=== PATIENT | male | born 1955 | race Caucasian/White ===

== ENCOUNTER 2016-09-07 20:13 | Emergency (ER) | payer OTHER ==
[~2016-09-07] VITALS: Ht 180.3 cm; Wt 88.6 kg
[2016-09-07 20:32] VITALS: BP 126/95; PULSE 101; RESP 31; O2SAT 97
--- NOTE | 2016-09-07 20:59 | DRSVH ---
PROCEDURE: X-RAY CHEST, TWO VIEWS ([id number]) INDICATIONS: fall off log, trapped between 2 logs TECHNIQUE: 2 views of the chest were acquired. COMPARISON: None. FINDINGS: Surgical changes and devices: None. Lungs and pleura: No pleural effusions or pneumothorax. Lungs are clear. Mediastinum: Mediastinal contours are normal. Heart size is normal. Bones and chest wall: Moderately displaced left posterior lateral eighth rib fracture. Soft tissues a ppear unremarkable. IMPRESSION: 1. Left eighth rib fracture. Dictated by: Shawna Kang M.D. on 09/07/2016 at 20:57 Approved by: Shawna Kang M.D. on 09/07/2016 at 20:57
--- NOTE | 2016-09-07 21:43 | ED.REPORT ---
HPI-Trauma Minor / Fall Date of Service September 07, 2016 ED Provider: Doc,Ed MD The patient is a 61 year old male who presents to the ED accompanied by his due to left thoracic pain after falling off a driftwood log a few hrs [employer]. Pt cannot take a deep breath due to pain. When he shifts his weight from one foot to the other, he experiences intense pain. Pt did not hit his head and denies LOC, numbness, weakness, or tingling. Dr. Lindsey Mcdermott at [facility] is his PCP. Nursing Notes Stated Complaint: SHORTNESS OF BREATH, RIB PAIN/AFTER FALL Chief Complaint: Multiple Trauma/Fall Nursing Notes Reviewed: Yes Allergies: Coded Allergies: No Known Allergies (Unverified , 09/07/16) General Time Seen by MD: 21:42 Chief Complaint Fall Hx Obtained From: Patient Arrived By: Walk-in Onset Occurred: 1 - 4 hours ago Symptom Duration: Since onset Caused by: Fall on ground Location: Abdomen (left sided ) Quality: Painful Severity: Current: Moderate Recent Healthcare: No recent doctor visit, No recent hospitalization Similar Sx Previous: No Past Medical History Past Medical History denies Past Surgical History denies Smoking History Unknown if Ever Smoker Social History Other Social History: Good social support, , Local resident Ambulatory Status Independent Review of Systems Respiratory: Reports: Shortness of breath Musculoskeletal: Reports: Thoracic pain (right sided rib pain) Neurologic: Denies: Change LOC, Dizziness, Headache, Numbness, Weakness Complete sys rev & neg: except as marked. GI: Denies: Abdominal pain Hematologic: Reports Bruising, Denies Bleeding Physical Exam Initial Vital Signs Vital Signs (First) Date Time Temp Pulse Resp B/P Pulse Ox O2 Delivery O2 Flow Rate FiO2 09/07/16 20:32 36.6 101 31 126/95 97 Room Air Initial VS: Reviewed General/Constitutional: Awake, Alert, Cooperative pt is standing when encountered appears steady on feet Neck: Supple, No midline vertebral tend Head / Eyes: Normocephalic, PERRL ENT: Airway patent, Mucous membranes moist Respiratory / Chest: Breath sounds = bilat, No respiratory distress guarding ecchymosis and abrasion left post-axillary line Cardiovascular: Heart rate NL, Regular rhythm, Heart sounds NL, No gallop, No murmurs, No rubs Back: No midline vertebral tend, No paraspinal tenderness, No CVA tenderness Upper Extremity / MS: No deformity, Neurologic intact Lower Extremity / Pelvis / MS: No deformity, Neurologic intact Ankle / Foot: No deformity, Neurologic intact Skin: Color NL, Warm, Dry Neurologic: Oriented X3, Speech NL, No motor deficits Interpretation & Diagnostics Lab Results Interpretation Result Diagram: 09/07/16220109/07/162201 Test 09/07/16 22:02 White Blood Count 13.7th/mm3 (3.8-10.1) Red Blood Count 5.06mil/mm3 (4.40-5.80) Hemoglobin 15.9g/dL (13.8-17.2) Hematocrit 46.0% (41.0-50.0) Mean Corpuscular Volume 90.9fL (81-100) Mean Corpuscular Hemoglobin 31.4pg (27.0-35.0) Mean Corpuscular Hemoglobin Concent 34.6% (32.0-37.0) Red Cell Distribution Width 12.7% (12.3-15.4) Platelet Count 322bil/L (150-400) Neutrophils (%) (Auto) 78.2% (40-74) Lymphocytes (%) (Auto) 13.6% (14-46) Monocytes (%) (Auto) 6.8% (4-12) Eosinophils (%) (Auto) 0.7% (0-5) Basophils (%) (Auto) 0.3% (0-3) Sodium Level 140mEq/L (134-144) Potassium Level 3.8mEq/L (3.5-5.2) Chloride Level 98mEq/L (97-108) Carbon Dioxide Level 25mmol/L (18-29) Blood Urea Nitrogen 24mg/dL (8-27) Creatinine 0.93mg/dL (0.76-1.27) Estimat Glomerular Filtration Rate 88mL/min (>59) Glucose Level 100mg/dL (60-99) Calcium Level 9.8mg/dL (8.5-10.1) Total Bilirubin 0.4mg/dL (0.0-1.2) Aspartate Amino Transf (AST/SGOT) 27U/L (0-50) Alanine Aminotransferase (ALT/SGPT) 43U/L (0-44) Alkaline Phosphatase 74U/L (25-160) Total Protein 8.4g/dL (6.4-8.4) Albumin 5.0g/dL (3.4-5.0) X-Ray Chest Interpretation Chest Xray Interpretation: IMPRESSION: 1. Left eighth rib fracture. Dictated by: Shawna Kang M.D. on 09/07/2016 at 20:57 Approved by: Shawna Kang M.D. on 09/07/2016 at 20:57 View: Portable Interpretation / Wet Read by: Interpret - Radiologist CT Chest Interpretation EXAM: CT chest, abdomen, and pelvis with contrast conslusion: fracture of the left 8th rib wit hchest wall emphysema. No pneumothorax. EXAM: Abdomen and pelvis CT Conclusion: no CT evidence of traumatic injury to the abdomen and pelvis. Radiologist: Jimmy Mojica M.D. Study type: Chest CT no contrast Interpretation / Wet Read by: Interpret - Radiologist Re-Eval/Medical Decision Med Decision/Clinical Course 61-year-old male with a chest wall injury consisting of a single rib fracture. There is some subcutaneous emphysema but on initial imaging no pneumothorax. He had some left upper quadrant abdominal tenderness CT abdomen does not reveal any acute traumatic abdominal injury. Recent is at midnight resting comfortably, the plan is to do a portable chest at 2 AM and discharged with symptomatic treatment if no pneumothorax. Initial tachypnea resolved with adequate pain control. 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 Plan for repeat chest x-ray. Counseled Regarding: Diagnosis, Lab results, Need for follow-up, When/why to return to ED Discharge & Departure Impression: Primary Impression: Rib fracture Encounter type: initial encounter Rib fracture type: single rib Fracture type: closed Laterality: left Qualified Code: S22.32XA - Fracture of one rib, left side, initial encounter for closed fracture Disposition: Home Discharge Condition All VS Reviewed: Yes Condition: Stable Additional Instructions: Emergency department evaluation tonight includes interview, examination and CT scan of the chest. We found a single left-sided broken rib, #8 and a small amount of air in the soft tissues of the chest wall. Collapsed lung and no injury to the spleen. We observed for 4 hours to confirm that there was no collapsed lung. Expected to have some ongoing chest pain. May use oxycodone/ APAP one to 2 every 4 hours as needed for pain, ice to sore areas on chest wall keeping ice wrapped in a towel. Remove this after 10-15 minutes this can be done hourly. Return to emergency department for shortness of breath or increasing abdominal pain and frequent vomiting or chest pain. Follow-up with primary care next week. Referrals: OTHER,PHYSICIAN (PCP) [facility] Scribe Attestation Portion of this note were transcribed by Edda Mcghee. I, , personally performed the history, physical exam, and medical decision-making: I reviewed and confirmed the accuracy for the information in the transcribed note. Signed by: alo Serra, 09/07/16 [id number] copies to: OTHER,PHYSICIAN; [facility] Live Das MD September 07, 2016 21:43 Edda Mcghee September 07, 2016 21:51
[2016-09-07] MEDS ORDERED: Ketorolac 15 mg/mL Inj IVPUSH ONE (21:50)
[2016-09-07] MEDS ORDERED: Ondansetron 2 mg/mL 2 mL Inj IV PRN (21:50)
[2016-09-07] MEDS: HYDROmorphone 1 mg/mL Inj IVPUSH PRN (22:08)
[2016-09-07 22:13] LABS: BASOPHILS % (AUTO) 0.3 % (0-3); EOSINOPHILS % (AUTO) 0.7 % (0-5); MONOCYTES % (AUTO) 6.8 % (4-12); Mean Corpuscular Hemoglobin 31.4 pg (27.0-35.0); Mean Corpuscular Volume 90.9 fL (81-100); NEUTROPHILS % (AUTO) 78.2 % (40-74); Platelet Count 322 bil/L (150-400)
[2016-09-07 23:35] VITALS: BP 141/82; PULSE 99; RESP 18; O2SAT 97
[2016-09-07] MEDS ORDERED: _oxyCODONE/APAP 5-325 mg Tablet PO PRN (23:50)
[2016-09-08] MEDS ORDERED: OXYC-407 PO (01:46)
[2016-09-08] MEDS: HYDROmorphone 1 mg/mL Inj IVPUSH PRN (02:17)
[2016-09-08 02:22] VITALS: BP 133/89; PULSE 96; RESP 16; O2SAT 95
--- NOTE | 2016-09-08 09:17 | DRSVH ---
PROCEDURE: X-RAY CHEST ONE VIEW, PORTABLE ([id number]) INDICATIONS: re-check chest wall injury TECHNIQUE: One view of the chest was acquired. COMPARISON: [facility], CR, XR CHEST 2VW, 09/07/2016, 20:47. FINDINGS: Surgical changes and devices: None. Lungs and pleura: Left perihilar and lower lobe pulmonary opacities with superimposed left basilar sc arring. No definite pleural effusions. Mediastinum: Mediastinal contours appear normal. Heart size is normal. Bones and chest wall: No suspicious bony lesions. Overlying soft tissues appear unremarkable. IMPRESSION: Left perihilar and left basilar pulmonary opacity may or present atelectasis or early asp iration given history of trauma. Dictated by: Chuy Clayton M.D. on 09/08/2016 at 9:13 Approved by: Chuy Clayton M.D. on 09/08/2016 at 9:15
--- NOTE | 2016-09-08 10:19 | DRSVH ---
PROCEDURE: CT CHEST, ABDOMEN AND PELVIS WITH CONTRAST ([id number]) INDICATIONS: L chest wall and abd injury TECHNIQUE: After the administration of intravenous contrast, 5 mm thick sections acquired from the lung apices t o the symphysis. 5 mm thick coronal and sagittal reformats were acquired. Additional 7 mm thick cor onal maximum intensity projection (MIP) reformats acquired through the lungs. Optional 10-minute del ayed imaging may be performed from the kidneys to the bladder. For radiation dose reduction, the fol lowing was used: automated exposure control, adjustment of mA and/or kV according to patient size. COMPARISON: None. FINDINGS: Image quality: Excellent. CHEST: Lungs: Bibasilar scarring or atelectasis. No pulmonary contusions or lacerations. Minimal left lower lobe contusion. Minimal left-sided hemothorax. Central and peripheral airways appear patent and nor mal in caliber. Mediastinum: No mediastinal hematomas. Heart size is normal. No pericardial effusion. Thoracic ao rta and pulmonary arteries demonstrate normal size and enhancement. No mediastinal or hilar adenopat hy. Esophagus is normal in caliber. No hiatal hernia. Chest wall: Nondisplaced posterior lateral left sixth and seventh rib fractures and a displaced left posterior lateral eighth rib fracture.. No subcutaneous emphysema. No axillary or supraclavicular a denopathy. Thyroid gland is normal where seen. ABDOMEN: Solid organs: Benign hepatic cysts. Otherwise the liver and spleen are normal in size and enhancement , without lacerations. Gallbladder is present. Biliary system is non-dilated. Pancreas enhances no rmally, without transection. No adrenal hematomas. Both kidneys enhance normally, without hydroneph rosis or lacerations. Peritoneum and bowel: No free fluid or air. Unenhanced bowel loops demonstrate normal wall thicknes s and caliber. Nodes and vessels: No retroperitoneal or mesenteric adenopathy. Aorta and inferior vena cava are no rmal in size and enhancement. Miscellaneous: No ventral hernias. PELVIS: Genitourinary: Bladder wall thickness is normal. Miscellaneous: No inguinal hernias or adenopathy. Bones: Pelvic ring and hip joints appear intact. No vertebral compression fractures. IMPRESSION: 1. Left sixth-eighth rib fractures with underlying pulmonary contusion and minimal hemothorax. 2. Otherwise, no posttraumatic pathology in the chest, abdomen or pelvis. 3. There are no discrepancies with the preliminary report. Dictated by: Chuy Clayton M.D. on 09/08/2016 at 10:09 Approved by: Chuy Clayton M.D. on 09/08/2016 at 10:17
== END 2016-09-08 02:23 | disposition home or self-care (01) ==
LOC: SED 20:13
DX: S22.32XA Fracture of one rib, left side, initial encounter for closed fracture (principal); W18.30XA Fall on same level, unspecified, initial encounter; Y92.9 Unspecified place or not applicable; Y93.89 Activity, other specified; Y99.8 Other external cause status; Z95.1 Presence of aortocoronary bypass graft
CPT/HCPCS: 36415; 71010; 71020; 71260; 74177; 80053; 85025; 96374; 96375; 96376; 99285; J1170; J1885; J2405; Q9967